=== PATIENT | male | born 1995 | race African-American/Black ===

== ENCOUNTER 2019-01-09 00:23 | Emergency (ER) | payer OTHER ==
--- NOTE | 2019-01-09 01:03 | ED ---
Laceration/Wound HPI - HPI Summary HPI Summary: 23-year-old male presents with left thumb laceration. He states he cut it open. No active bleeding. He denies any foreign body in the wound. has full range of motion of his finger. He is right-handed. Tetanus up-to-date. Has no medical conditions. - History of Current Complaint Stated Complaint: "NEED STITCHES IN LEFT THUMB" PER PT Time Seen by Provider: 01/09/19 00:35 Pain Intensity: 3 - Allergy/Home Medications Allergies/Adverse Reactions: Allergies Allergy/AdvReac Type Severity Reaction Status Date / Time No Known Allergies Allergy Verified 01/09/19 00:26 PMH/Surg Hx/FS Hx/Imm Hx Endocrine/Hematology History: Denies: Hx Anticoagulant Therapy Respiratory History: Denies: Hx Asthma Infectious Disease History: No Infectious Disease History: Denies: Traveled Outside the [place] in Last 30 Days - Family History Known Family History: Positive: Non-Contributory - Social History Alcohol Use: Occasionally Substance Use Type: Reports: None Smoking Status (MU): Never Smoked Tobacco Review of Systems Negative: Fever Negative: Chest Pain Negative: Shortness Of Breath Positive: Other - left thumb laceration All Other Systems Reviewed And Are Negative: Yes Physical Exam Triage Information Reviewed: Yes Vital Signs On Initial Exam: Initial Vitals Temp Pulse Resp BP Pulse Ox 98.7 F 65 14 139/76 97 01/09/19 00:25 01/09/19 00:25 01/09/19 00:25 01/09/19 00:25 01/09/19 00:25 Vital Signs Reviewed: Yes Appearance: Positive: Well-Appearing Skin: Positive: Warm, Dry, Other - 2cm superficial laceration to distal phalanx left thumb Head/Face: Positive: Normal Head/Face Inspection Eyes: Positive: Normal, Conjunctiva Clear ENT: Positive: Pharynx normal Respiratory/Lung Sounds: Positive: Clear to Auscultation, Breath Sounds Present Cardiovascular: Positive: Normal, RRR Musculoskeletal: Positive: Strength/ROM Intact - left thumb, Other - capillary refill<2secs Neurological: Positive: Normal Psychiatric: Positive: Normal Procedures - Laceration/Wound Repair 1 Location: Other - left thumb Description: Linear Length, Depth and Shape: 2cm superficial laceration Irrigated w/ Saline (ccs): 100 Closure: Skin Adhesive, SteriStrips Diagnostics - Vital Signs Vital Signs Temp Pulse Resp BP Pulse Ox 01/09/19 00:25 98.7 F 65 14 139/76 97 - Laboratory Lab Statement: Any lab studies that have been ordered have been reviewed, and results considered in the medical decision making process. Laceration Repair Course/Dx - Course Course Of Treatment: 23-year-old male presents with left thumb laceration. He states he cut it open. No active bleeding. He denies any foreign body in the wound. has full range of motion of his finger. He is right-handed. Tetanus up -to-date. Has no medical conditions. On exam has 2 cm superficial laceration to the distal phalanx of left thumb. Cleaned area and Place Steri-Strips. Told very clean and dry. Patient understands agrees plan. - Differential Dx Differental Diagnoses: Abrasion, Avulsion, Laceration - Clinical Impression Provider Diagnoses: Thumb laceration Discharge - Sign-Out/Discharge Documenting (check all that apply): Patient Departure Patient Received Moderate/Deep Sedation with Procedure: No - Discharge Plan Condition: Good Disposition: HOME Patient Education Materials: Skin Adhesive Care (ED) Referrals: No Primary Care Phys,NOPCP [Primary Care Provider] - Additional Instructions: Take Tylenol or ibuprofen for pain as needed every 6 hours Keep dry for 24 hours Glue will fall off on own Avoid scrubbing area Return to ED if develop any signs of infection or any new or worsening symptoms - Billing Disposition and Condition Condition: GOOD Disposition: Home
[2019-01-09 01:37] VITALS: BP 133/86
== END 2019-01-09 01:36 | disposition home or self-care (01) ==
LOC: ED 00:23
DX: S61.012A Laceration without foreign body of left thumb without damage to nail, initial encounter (principal); X58.XXXA Exposure to other specified factors, initial encounter; Y92.9 Unspecified place or not applicable
CPT/HCPCS: 99282